=== PATIENT | male | born 1965 | race Caucasian/White ===

== ENCOUNTER 2023-12-06 09:14 | Outpatient (CLI) | payer BC, SELFPAY ==
--- NOTE | 2023-12-06 09:22 | XR_ITS ---
WS: [id number] XR hand RT min 3V* [id number] REASON FOR EXAM: PAIN IN R HAND FINDINGS: No fracture or focal bone lesion. No periosteal reaction or bone erosion. Joint spaces of the right hand are intact and well preserved. There is mild joint space narrowing with mild subchondral sclerosis and mild osteophytosis in the car pometacarpal joint of the thumb. Remainder of the joint spaces in the right hand are intact and relat ively well preserved. 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
== END 2023-12-06 09:15 | disposition home or self-care (01) ==
PROVIDERS: Visit Provider Nurse Practitioner Family
DX: M18.9 Osteoarthritis of first carpometacarpal joint, unspecified (principal)
CPT/HCPCS: 73130